=== PATIENT | female | born 1990 | race African-American/Black ===

== ENCOUNTER 2018-01-30 20:56 | Inpatient (IN) | payer OTHER ==
[2018-01-30 21:16] VITALS: BMI 29.5
[2018-01-30 21:28] LABS: BASO % 0.9 % (0-2.0); EOS % 1.1 % (0-4.5); HEMATOCRIT 26.8 % (32.4-45.2); HEMOGLOBIN 8.9 GM/dL (10.7-15.3); LYMPH % 38.2 % (8-40); MCH 24.5 pg (25.7-33.7); MCHC 33.2 g/dl (32.0-36.0); MEAN CELL VOLUME 73.5 fl (80-96); MEAN PLT VOLUME 7.8 fl (7.5-11.1); MONO % 5.7 % (3.8-10.2); NEUT % 54.1 % (42.8-82.8); PLATELET COUNT 401 K/MM3 (134-434); RBC 3.64 M/mm3 (3.60-5.2); RDW 18.6 % (11.6-15.6); WHITE BLOOD COUNT 7.7 K/mm3 (4.0-10.0)
[2018-01-30 21:41] LABS: INR 0.98 (0.83-1.09); PROTHROMBIN TIME (PATIENT) 11.1 SEC (9.7-13.0)
[2018-01-30] MEDS ORDERED: CEFAZOLIN 1 GM/D5W 1 GM/50 ML BAG IVPB ONE (21:41)
[2018-01-30] MEDS ORDERED: OXYTOCIN 20 UNITS in 0.9% NS 1000 ML INFUS.BAG IV ONE (21:42)
[2018-01-30 21:44] LABS: ACTIVATED PTT 25.4 SECONDS (25.2-36.5)
--- NOTE | 2018-01-30 21:46 | PDOC ---
History of Present Illness - General History Source: Patient, Family Exam Limitations: No Limitations - History of Present Illness Initial Comments: 01/30/18 22:40 The patient is a 27 year old female brought via EMS and presenting with her friend, currently 14 weeks , with no significant past medical history, who presents to the ED complaining of vaginal bleeding onset today. She reports that she saw a physician last week and was told that she was 13 weeks gestation and was also informed that she was under demise. She has an upcoming appointment on 02/02/2018 to get a D&C. Currently the patient is still bleeding and her blood pressure is low. The patient denies chest pain, shortness of breath, headache and dizziness. Denies fever, chills, nausea, vomiting, diarrhea or constipation. Denies dysuria , frequency, urgency. Blood Type: O Positive Allergies: None Past surgical history: None reported Social History: No alcohol, tobacco or drug use reported <Juan J Matta - Last Filed: 01/30/18 22:40> <Mery Sawyer - Last Filed: 02/01/18 06:40> - General Chief Complaint: Vaginal Bleeding Stated Complaint: MISCARRIAGE Time Seen by Provider: 01/30/18 21:19 Past History <Juan J Matta - Last Filed: 01/30/18 22:40> - Past Medical History COPD: No - Suicide/Smoking/Psychosocial Hx Smoking History: Never smoked Have you smoked in the past 12 months: No Information on smoking cessation initiated: No Hx Alcohol Use: No Drug/Substance Use Hx: No <Mery Sawyer - Last Filed: 02/01/18 06:40> - Past Medical History Allergies/Adverse Reactions: Allergies Allergy/AdvReac Type Severity Reaction Status Date / Time No Known Allergies Allergy Verified 01/30/18 18:18 Home Medications: Ambulatory Orders Ibuprofen [Motrin -] 400 mg PO QID #28 tablet 01/30/18 Review of Systems - Review of Systems Able to Perform ROS?: Yes Comments:: 01/30/18 22:41 GENERAL/CONSTITUTIONAL: No fever or chills. No weakness. HEAD, EYES, EARS, NOSE AND THROAT: No change in vision. No ear pain or discharge. No sore throat. GASTROINTESTINAL: No nausea, vomiting, diarrhea or constipation. GENITOURINARY: (+) Vaginal bleeding. No dysuria, frequency, or change in urination. CARDIOVASCULAR: No chest pain or shortness of breath. RESPIRATORY: No cough, wheezing, or hemoptysis. MUSCULOSKELETAL: No joint or muscle swelling or pain. No neck or back pain. SKIN: No rash NEUROLOGIC: No headache, vertigo, loss of consciousness, or change in strength/ sensation. ENDOCRINE: No increased thirst. No abnormal weight change. HEMATOLOGIC/LYMPHATIC: No anemia, easy bleeding, or history of blood clots. ALLERGIC/IMMUNOLOGIC: No hives or skin allergy. <Juan J Matta - Last Filed: 01/30/18 22:40> *Physical Exam - Vital Signs Last Vital Signs Temp Pulse Resp BP Pulse Ox 98.2 F 84 16 123/74 100 01/30/18 21:02 01/30/18 21:48 01/30/18 21:48 01/30/18 21:48 01/30/18 21:48 - Physical Exam Comments: 01/30/18 22:41 Constitutional: Awake, alert, oriented. No acute distress. Head: Normocephalic. Atraumatic Eyes: PERRL. EOMI. Conjunctivae are not pale. ENT: Mucous membranes are moist and intact. Posterior pharynx without exudates or erythema. Uvula midline. Neck: Supple. Full ROM. No lymphadenopathy. Cardiovascular: Regular rate. Regular rhythm. S1, S2 regular. Distal pulses are 2+ and symmetric. Pulmonary/Chest: No evidence of respiratory distress. Clear to auscultation bilaterally No wheezing, rales or rhonchi. Abdominal: Soft and non-distended. There is no tenderness. No rebound, guarding or rigidity. No organomegaly. No palpable masses. Good bowel sounds. Back: No CVA tenderness. Musculoskeletal: No edema. No cyanosis. No clubbing. Full range of motion in all extremities. Nocalf tenderness. Radial/pedal pulses are intact and 2+ bilaterally Skin: Skin is warm and dry. No petechiae. No purpura. Neurological: Alert and oriented to person, place, and time. Cranial nerves II -XII are grossly intact. Normal speech. Strength is grossly symmetric. No sensory deficits. Psychiatric: Good eye contact. Normal interaction, affect and behavior. <Juan J Matta - Last Filed: 01/30/18 22:40> - Vital Signs Last Vital Signs Temp Pulse Resp BP Pulse Ox 98.2 F 110 H 16 122/76 100 01/30/18 21:02 01/30/18 21:02 01/30/18 21:02 01/30/18 21:02 01/30/18 21:02 <Mery Sawyer - Last Filed: 02/01/18 06:40> ED Treatment Course - LABORATORY CBC & Chemistry Diagram: 01/30/18 21:18 01/30/18 21:18 - ADDITIONAL ORDERS Additional order review: Laboratory Results 01/30/18 01/30/18 01/30/18 21:18 21:18 21:00 PT with INR 11.10 INR 0.98 PTT (Actin FS) 25.4 Sodium 139 Potassium 3.9 Chloride 106 Carbon Dioxide 24 Anion Gap 9 BUN 9 Creatinine 0.7 Creat Clearance w eGFR > 60 Random Glucose 107 H Calcium 8.8 Total Bilirubin 0.1 L AST 17 ALT 15 Alkaline Phosphatase 67 Total Protein 6.8 Albumin 2.9 L Beta HCG, Quant Blood Type O POSITIVE Antibody Screen Negative Crossmatch See Detail 01/30/18 21:00 PT with INR INR PTT (Actin FS) Sodium Potassium Chloride Carbon Dioxide Anion Gap BUN Creatinine Creat Clearance w eGFR Random Glucose Calcium Total Bilirubin AST ALT Alkaline Phosphatase Total Protein Albumin Beta HCG, Quant 607.0 Blood Type Antibody Screen Crossmatch 01/30/18 21:18 RBC 3.64 MCV 73.5 L MCHC 33.2 RDW 18.6 H MPV 7.8 Neutrophils % 54.1 Lymphocytes % 38.2 Monocytes % 5.7 Eosinophils % 1.1 Basophils % 0.9 <Juan J Matta - Last Filed: 01/30/18 22:40> - LABORATORY CBC & Chemistry Diagram: 01/31/18 09:55 01/31/18 09:55 - ADDITIONAL ORDERS Additional order review: Laboratory Results 01/30/18 21:00 Crossmatch See Detail 01/30/18 21:18 RBC 3.64 MCV 73.5 L MCHC 33.2 RDW 18.6 H MPV 7.8 Neutrophils % 54.1 Lymphocytes % 38.2 Monocytes % 5.7 Eosinophils % 1.1 Basophils % 0.9 - RADIOLOGY Radiology Studies Ordered: Category Date Time Status TRANSVAGINAL US PREG [US] Stat Ultrasound 01/30/18 21:13 Ordered <Mery Sawyer - Last Filed: 02/01/18 06:40> Medical Decision Making - Medical Decision Making 01/30/18 21:45 I just spoke to Dr. Lewis who is aware that pt is actively miscarrying. Last meal was 2PM and that she has placenta and products inside. Pt received 1U O- blood and she is getting 2L NSS. Dr. Lewis requests Pitocin 20U in 1L NSS and ancef 1g. Pt 's labs are still pending. 01/30/18 21:49 Pt's fetus was delivered; membranes ruptured, so we will no longer instrument or manipulate the vaginal vault. Pt's pain is decreased. She will have a bedside sono with a vaginal probe. 01/30/18 22:44 Pt is stable. BP systolic is 145. She is experiencing cramps. She is awaiting OR with Dr. Lewis. 01/30/18 23:07 Pt is going up to the OR now for D+C 01/30/18 23:08 Preop CXR clear 01/30/18 23:32 Patient Name: CAT LOMAX THIS IS A PRELIMINARY REPORT FROM [facility] DATE OF SERVICE: 2018-01-30 21:34:42 IMAGES: 63 EXAM: Endovaginal pelvic ultrasound and pelvic duplex HISTORY: Rule out retained products of conception status post miscarriage COMPARISON: None. FINDINGS: Ultrasound :Uterus is anteverted and measures 14.4centimeters in length. The endometrium is thickened to 2.3 cm and demonstrates areas of fundal hypervascularity, suspicious for retained products of conception l. There are no fibroids. Fluid is noted in the cervix. The right ovary measures 5.1centimeters in length, contains a 1.6 cm cyst and l and demonstrates normal flow. Left ovary measures 3 pointcentimeters in length appears normal demonstrates normal flow. There is no significant free fluid. Pelvic duplex : There is normal normal arterial and venous flow in both ovaries. IMPRESSION: Suspected retained products of conception can correlated with beta- hCG levels. THIS DOCUMENT HAS BEEN ELECTRONICALLY SIGNED 02/01/18 06:39 Pt was sent to the OR for D+C <Mery Saywer - Last Filed: 02/01/18 06:40> *DC/Admit/Observation/Transfer - Attestations Scribe Attestion: 01/30/18 22:41 Documentation prepared by Juan J Matta, acting as biomedical manager for Mery Sawyer MD <Juan J Matta - Last Filed: 01/30/18 22:40> - Discharge Dispostion Decision to Admit order: Yes <Mery Sawyer - Last Filed: 02/01/18 06:40> Diagnosis at time of Disposition: demise, Miscarriage, Hemorrhage - Discharge Dispostion Disposition: HOME Condition at time of disposition: Stable
[2018-01-30 21:52] LABS: ALBUMIN 2.9 g/dl (3.4-5.0); ALK PHOS 67 U/L (45-117); ANION GAP 9 MMOL/L (8-16); BILIRUBIN,TOTAL 0.1 mg/dL (0.2-1.0); BLOOD UREA NITROGEN 9 mg/dL (7-18); CALCIUM 8.8 mg/dL (8.5-10.1); CHLORIDE 106 mmol/L (98-107); CO2 24 mmol/L (21-32); CREATININE 0.7 mg/dL (0.55-1.02); GLUCOSE,RANDOM 107 mg/dL (74-106); POTASSIUM 3.9 mmol/L (3.5-5.1); SGOT/AST 17 U/L (15-37); SGPT/ALT 15 U/L (12-78); SODIUM 139 mmol/L (136-145); TOT PROT 6.8 g/dl (6.4-8.2)
[2018-01-30] MEDS ORDERED: morphine CARPU-JECT 2 MG/1 ML DISP.SYRIN IVPUSH ONE (22:57)
[2018-01-31] MEDS ORDERED: IBUPROFEN 800 MG/8 ML IJ IVPB PRN (00:19)
[2018-01-31] MEDS ORDERED: ONDANSETRON 4 MG/2 ML VIAL IVPUSH PRN (00:19)
[2018-01-31] MEDS ORDERED: LACTATED RINGERS SOLUTION 1,000 ML IV SCH (00:30)
[2018-01-31] MEDS ORDERED: OXYTOCIN 10 UNITS/ML VIAL ONE (00:39)
[2018-01-31] MEDS ORDERED: OXYTOCIN 20 UNITS in 0.9% NS 20 UNIT/1,000 ML INFUS.BAG IV SCH (00:45)
[2018-01-31] MEDS ORDERED: oxyCODONE HCL 5 MG TABLET PO PRN (01:26)
[2018-01-31] MEDS: IBUPROFEN 600 MG TABLET (FP) PO PRN ×2 (08:44→14:12)
--- NOTE | 2018-01-31 09:08 | PN ---
Progress Note (short form) - Note Progress Note: Post op day#1.S/P D&C under GA uneventful.Patient stable.No any anesthesia related problem.Patient Dc from the anesthesia care.
[2018-01-31 10:13] LABS: BASO % 0.2 % (0-2.0); HEMATOCRIT 26.7 % (32.4-45.2); HEMOGLOBIN 8.8 GM/dL (10.7-15.3); LYMPH % 11.2 % (8-40); MCH 25.8 pg (25.7-33.7); MCHC 32.9 g/dl (32.0-36.0); MEAN CELL VOLUME 78.3 fl (80-96); MEAN PLT VOLUME 7.4 fl (7.5-11.1); MONO % 3.3 % (3.8-10.2); NEUT % 85.3 % (42.8-82.8); PLATELET COUNT 232 K/MM3 (134-434); RBC 3.41 M/mm3 (3.60-5.2); RDW 16.9 % (11.6-15.6)
[2018-01-31 10:44] LABS: ANION GAP 10 MMOL/L (8-16); BLOOD UREA NITROGEN 4 mg/dL (7-18); CALCIUM 7.6 mg/dL (8.5-10.1); CHLORIDE 110 mmol/L (98-107); CO2 21 mmol/L (21-32); CREATININE 0.5 mg/dL (0.55-1.02); GLUCOSE,RANDOM 135 mg/dL (74-106); SODIUM 141 mmol/L (136-145)
[2018-01-31 12:51] VITALS: BP 110/55; PULSE 93; TEMP 98.4
--- NOTE | 2018-01-31 13:34 | OP ---
DATE OF OPERATION: 01/30/2018 PREOPERATIVE DIAGNOSES: , 14 weeks; missed ; retained placenta. POSTOPERATIVE DIAGNOSES: , 14 weeks; missed ; retained placenta. PROCEDURE: Removal of the placenta and suction curettage. SURGEON: Chun Lewis MD ANESTHESIA: General. ANESTHESIOLOGIST: ESTIMATED BLOOD LOSS: 300 mL. OPERATION: The patient was taken to the operating room, adequate general anesthesia, in dorsal lithotomy position. Examination under anesthesia revealed a large amount of blood clot in the vagina, which was removed. Os was opened with placenta tissue seen at the os. At this time, the uterus was 14-week size. Adnexa: No masses are palpable. Then, with a weighted speculum in the vagina, the anterior lip of the cervix was grasped with a single-toothed tenaculum and the placenta was removed with a polyp forceps. Then, suction curette was inserted and the contents of the uterus were suctioned. The patient tolerated the procedure well, left the OR in good condition. Ilda [id number]
--- NOTE | 2018-02-02 14:31 | PATH ---
Surgical Pathology Report Patient Name: CAT LOMAX [facility]. Rec. #: [id number] /Age/Gender: 1990 (Age: 27) / F Account: [id number] Location: [facility] OBS/INSPECTOR ELEVATORS Taken: 01/31/2018 Received: 02/01/2018 Reported: 02/02/2018 Physicians: MD Chun Carrillo M.D. Specimen(s) Received A: PRODUCTS OF CONCEPTION B: PRODUCTS OF CONCEPTION Clinical History demise and active spontaneous Final Diagnosis A. PRODUCTS OF CONCEPTION, DELIVERY: 46 G IMMATURE FETUS. B. PRODUCTS OF CONCEPTION, SUCTION CURETTAGE: IMMATURE PLACENTA AND MEMBRANES. Electronically Signed Shelia Mitchell M.D. Gross Description A. Received in formalin, labeled with the patient's name and indicated on the requisition to be products of conception is a 46 g, intact markedly autolyzed fetus. The specimen measures 8.8 cm from crown to rump and 12.8 cm from crown to heel. Each foot measures 1.5 cm from heel to toe. The skin is markedly macerated. The upper and lower extremities appear normal. The lumbosacral spine is intact. The internal organs are markedly autolyzed and occupy their normal anatomic position. No definitive abnormalities are noted. The external genitalia appear to be that of a male. The brain is markedly autolyzed. Ve Teacher sections are submitted in 4 cassettes as follows: 1-heart and lung; 2-liver and bowel; 3-adrenal, kidneys and testes; 4-brain. B. Received in formalin labeled "products of conception," is a 14.0 x 12.5 x 2.8 cm aggregate of red-brown soft tissue fragments, consistent with portions of placenta. Sectioning reveals foci of blood clot and sotomayor membranes. Ve Teacher sections are submitted in 3 cassettes as follows: 1-membranes; 5-0-[id number] placental tissue. /02/01/201802/01/2018
== END 2018-01-31 14:20 | disposition home or self-care (01) | DRG 544 ==
LOC: JER 20:56 → JERBED 01-31 00:17 → J3W 01-31 02:42
PROVIDERS: ADMIT Obstetrics & Gynecology; ATTEND Obstetrics & Gynecology
PROC: 10D17ZZ Extraction of Products of Conception, Retained, Via Natural or Artificial Opening (ICD-10-PCS; principal; 2018-01-30 23:00)
DX: O03.1 Delayed or excessive hemorrhage following incomplete spontaneous abortion (principal); Z3A.14 14 weeks gestation of pregnancy; O02.1 Missed abortion
CPT/HCPCS: 36415; 36430; 71045-TC-FY; 76817-TC; 80048; 80053; 84702; 85025; 85610; 85730; 86850; 86900; 86901; 86922; 88305-TC; 94760; 99281-25; 99284-25; P9038; P9058